=== PATIENT | male | born 1965 | race Caucasian/White ===

== ENCOUNTER → 2023-10-08 15:20 | Outpatient (REF) | payer OTHER, SELFPAY ==
[2023-10-08 14:52] LABS: % Basophils 0.9 % (0-2); % Eosinophils 5.7 % (0-6); % Immature Granulocytes 0.1 % (0-0.5); % Lymphocytes 25.5 % (20.5-51.1); % Neutrophils 60.8 % (42.2-75.2); Absolute Basophils 0.1 10^3/uL (0-0.2); Absolute Eosinophils 0.5 10^3/uL (0-0.7); Absolute Monocytes 0.6 10^3/uL (0.1-0.6); Absolute Neutrophils 4.8 10^3/uL (1.4-6.5); Mean Corp Hgb Conc. 34.2 g/dL (33.0-37.0); Mean Corpuscular Volume 87.8 fL (80.0-94.0); Mean Platelet Volume 10.4 fL (7.4-10.4); Platelet Count 238 10^3/uL (130-400); Red Blood Cell Count 4.33 10^6/uL (4.70-6.10); Red Cell Dist. Width 12.8 % (11.5-14.5); White Blood Cell Count 7.8 10^3/uL (4.8-10.8)
== END ==
LOC: OIDL 15:20
PROVIDERS: ATTENDING PHYSICIAN Internal Medicine Hematology & Oncology
DX: E83.110 Hereditary hemochromatosis (principal)
CPT/HCPCS: 85025

== ENCOUNTER → 2024-10-25 14:55 | Outpatient (REF) | payer OTHER, SELFPAY | LOC: HWRCS 14:55 | PROVIDERS: ATTENDING PHYSICIAN Internal Medicine Cardiovascular Disease; FAMILY PHYSICIAN Internal Medicine | DX: I49.3 Ventricular premature depolarization (principal); I77.810 Thoracic aortic ectasia | CPT/HCPCS: 93306 ==

== ENCOUNTER → 2024-12-15 07:45 | Outpatient (REF) | payer OTHER, SELFPAY | LOC: HWRAD 07:45 | PROVIDERS: ATTENDING PHYSICIAN Specialist; FAMILY PHYSICIAN Internal Medicine | DX: E83.110 Hereditary hemochromatosis (principal) | CPT/HCPCS: 76700 ==

== ENCOUNTER 2025-01-26 14:57 | Inpatient (IN) | payer OTHER, SELFPAY ==
[2025-01-26] VITALS (12 sets, daily range): BP systolic 106–143; BP diastolic 61–99; BMI 28.3; BMI 27.4
[2025-01-26 12:40] LABS: % Basophils 0.8 % (0-2); % Eosinophils 1.7 % (0-6); % Immature Granulocytes 0.3 % (0-0.5); % Lymphocytes 24.4 % (20.5-51.1); % Monocytes 5.9 % (1.7-9.3); % Neutrophils 66.9 % (42.2-75.2); Absolute Basophils 0.1 10^3/uL (0-0.2); Absolute Eosinophils 0.2 10^3/uL (0-0.7); Absolute Lymphocytes 2.4 10^3/uL (1.2-3.4); Absolute Monocytes 0.6 10^3/uL (0.1-0.6); Absolute Neutrophils 6.5 10^3/uL (1.4-6.5); Hematocrit 41.4 % (39.0-52.0); Hemoglobin 14.3 g/dL (13.0-18.0); Mean Corp Hgb Conc. 34.5 g/dL (33.0-37.0); Mean Corpuscular Hgb 29.9 pg (27.0-31.0); Mean Corpuscular Volume 86.6 fL (80.0-94.0); Mean Platelet Volume 11.9 fL (7.4-10.4); Nucleated Red Blood Cells % 0 % (-); Platelet Count 228 10^3/uL (130-400); Red Blood Cell Count 4.78 10^6/uL (4.70-6.10); Red Cell Dist. Width 13.2 % (11.5-14.5); White Blood Cell Count 9.7 10^3/uL (4.8-10.8)
[2025-01-26 12:58] LABS: ALT (SGPT) 27 U/L (0-50); AST (SGOT) 30 U/L (17-59); Albumin 4.7 g/dl (3.5-5.0); Alkaline Phosphatase 75 U/L (38-126); Blood Urea Nitrogen 18 mg/dl (9-20); Calcium 9.9 mg/dl (8.4-10.2); Carbon Dioxide 27 mmol/L (22-30); Chloride 107 mmol/L (98-107); Estimated Creatinine Clearance 103 ml/min; Glucose 111 mg/dl (70-99); Potassium 4.3 mmol/L (3.5-5.1); Sodium 143 mmol/L (135-145); Total Bilirubin 0.8 mg/dl (0.2-1.3); eGFR > 60.00
[2025-01-26 12:59] LABS: Troponin I < 0.012 ng/ml
[2025-01-26] MEDS: CARDIZEM 20 MG IV (13:18)
[2025-01-26] MEDS: CARDIZEM 125 IV (13:19)
--- NOTE | 2025-01-26 14:00 | HPS.HSE ---
Family Physician
-
Family Physician: Brennan Truong
Chief Complaint
-
palpitations
History of Present Illness
Mr. Calos Marcus is a 59 yo man with hx mitral valve repair (2004), KADI, HLD, hemochromatosis, GERD presents to the ER with palpitations. Patient has hx PVC's but felt fluttering yesterday that was more persistent. This morning he felt that his
heart beat was beating very fast and so he came to the ER. He denies chest pain. No LE swelling. Post initiation of Dilt gtt with improved rate, patient's symptoms resolved.
No fevers/chills. No headache. No abdominal pain. No vomiting/diarrhea. He has no history significant bleeding/ no rectal bleeding.
Medical History
Past Medical History
Past Medical History: Reports Other (mitral valve repair (2004), KADI, HLD, hemochromatosis, GERD)
Past Surgical History: Reports Other
Social History
Tobacco: Non-smoker
Alcohol: None
Family History
Family History: Not pertinent
Allergies / Home Medications
Allergies reflects when Allergies were last updated in [facility].
Home Medications with original date entered in [facility]
Allergy/Medication List:
Allergies
Allergy/AdvReac Type Severity Reaction Status Date / Time
NKA - No Known Allergies Allergy Unknown Uncoded 01/26/25 12:11
Home Medications
fluticasone propionate 50 mcg/actuation nasal spray,suspension 2 spray intranasal BIDPRN PRN allergies 08/19/19
cetirizine 10 mg tablet (Zyrtec) 10 mg PO HS 08/12/22
aspirin 81 mg tablet,delayed release 81 mg PO DAILY 01/26/25
rosuvastatin 10 mg tablet (Crestor) 10 mg PO DAILY 01/26/25
Review of Systems
-
History Source: Patient
A 12 point ROS was completed and negative except as noted: Yes
Physical Exam
Vital Signs
Vital Signs
Temp Pulse Resp BP Pulse Ox
97.9 F 79 22 122/83 98
01/26/25 12:12 01/26/25 13:30 01/26/25 13:30 01/26/25 13:00 01/26/25 13:30
Physical Exam
General: No Apparent Distress
HEENT: PERRLA
Respiratory: Clear; No Wheezes
Cardiac: S1/S2 and Irregular Rhythm
GI: Soft and Non Tender
Musculoskeletal: No Edema
Skin: Warm and Dry; No Rash
Neuro: Awake, Alert, Oriented and AO x 3
Psych: Calm
Laboratory Results
-
01/26/25 12:26
01/26/25 12:26
Laboratory Results
Total Bilirubin 0.8 mg/dl (0.2-1.3) 01/26/25 12:26
AST 30 U/L (17-59) 01/26/25 12:26
ALT 27 U/L (0-50) 01/26/25 12:26
Alkaline Phosphatase 75 U/L (38-126) 01/26/25 12:26
Troponin I < 0.012 ng/ml 01/26/25 12:26
Data Reviewed
-
Diagnostic Radiology: Report Reviewed by me
Lab Data: Labs Reviewed by me
Impression/Plan
-
Mr. Calos Marcus is a 59 yo man with hx mitral valve repair (2004), KADI, HLD, hemochromatosis, GERD presents to the ER with palpitations.
Triage VS: T 98.1, P 32, RR 22, BP 142/74, SpO2 98%
LABS: WBC 9.7, Hg 14.3, PLT 228, Na 143, K+ 4.3, CO2 27, BUN 18, Cr 0.8, Glucose 111, liver enzymes WNL, Trop neg x 1
EKG: aflutter @ 119, ST depression anterolateral leads; TWI inferior and anterior leads; repeat with decrease in rate 74; no further ST depression lateral leads
MAR: IV Diltiazem gtt
Aflutter with RVR
-admit to IVU
-Cardiology consulted
-CHADS2-Vasc score = 0-2 (patient reports possible TIA post mitral valve repair surgery). Discussing with Dr. Holder, will hold off on AC until evaluated by Cardiology
-continue IV Dilt gtt
-add on TSH
-TTE 10/25/24 - EF 65-70%; well seated mitral annuloplasty ring
-NPO after MN
Hx Mitral Valve Repair
KADI
-BiPAP qhs
Hyperlipidemia
-recent report high calcium score, started on aspirin and crestor
-patient was scheduled for a nuclear stress test tomorrow AM; will clarify timing with Cardiology, NPO after mN as above
Hemochromatosis
-patient has phlebotomy monthly
DVT PPx Lovenox subQ
FULL CODE
--- NOTE | 2025-01-26 14:44 | CON.CAR ---
Addendum entered and electronically signed by Errol Holder MD 01/26/25 17:06:
Patient seen and examined in collaboration with PARARESCUE MANAGER; agree with below.
- 59-year-old male with mitral valve repair (2004), hemochromatosis, hyperlipidemia, previous TIA, and significantly elevated coronary calcium score (5710) resenting with palpitations; found to have new onset paroxysmal atrial fibrillation.
- The patient's EKG showed ischemic changes in the anterolateral leads (ST depression/T-wave abnormality).
- The patient converted back to sinus rhythm on a Cardizem drip.
- The patient was scheduled to undergo a stress test tomorrow; however, given EKG abnormalities and significantly elevated coronary calcium score, cardiac catheterization will be arranged for tomorrow instead.
- If the patient indeed has CAD, then his C2 V score would be 2; therefore, systemic anticoagulation would be indicated indefinitely.
- residential monitor.
- Will discontinue Cardizem drip and place the patient on metoprolol tartrate 12.5 mg twice daily.
- The patient had an recent echocardiogram 2 months ago with normal LVEF and stable cardiac function; no need to repeat at this time.
- NPO after midnight.
Addendum entered and electronically signed by DANIEL Palencia 01/26/25 16:55:
HPI not complete as below- He is here for evaluation after noting sustained palpitations around lunch time. He checked his Kardia monitor, which showed HR in 130's, so he came to the ER. He was seen to be in AFIB with RVR, then atrial flutter, now
back in SR.
Original Note:
Consultation
Consultation Request
Date/Time Consultation Requested: 01/26/25 9917
Date/Time Consultation Performed: 01/26/25 1445
Requesting Provider: Dr. White
Performing Provider: Briana SANCHEZ for Dr. Holder
Reason for Consultation: AFIB
Medical History
-
Chief Complaint: palpitations
History of Present Illness:
59 y/o male (patient of Dr. Ott) with hx MV repair at 2004, HLD, hemochromatosis, PVC's, dilated aortic root 4.3 cm, GERD, and sleep apnea. He recently had a coronary calcium score of 5710.
Past Medical History
Past Medical History: GERD, Hypercholesterolemia, Valvular Disease and Other (as above)
Social History
Personal:
Living: With Family
Family History
Family History: Reviewed & Not Pertinent
Allergies / Home Medications
Allergy/AdvReac Type Severity Reaction Status Date / Time
NKA - No Known Allergies Allergy Unknown Uncoded 01/26/25 12:11
�Medication �Instructions �Recorded �Confirmed �Type
fluticasone propionate 50 2 spray intranasal BIDPRN PRN 08/19/19 01/26/25 History
mcg/actuation nasal allergies
spray,suspension
cetirizine 10 mg tablet (Zyrtec) 10 mg PO HS 08/12/22 01/26/25 History
aspirin 81 mg tablet,delayed 81 mg PO DAILY 01/26/25 01/26/25 History
release
rosuvastatin 10 mg tablet (Crestor) 10 mg PO DAILY 01/26/25 01/26/25 History
Review of Systems
-
History Source: Patient
All other systems: Negative unless noted
Cardiac: Palpitations
Physical Exam
Vital Signs
Temp Pulse Resp BP Pulse Ox
97.9 F 79 22 122/83 98
01/26/25 12:12 01/26/25 13:30 01/26/25 13:30 01/26/25 13:00 01/26/25 13:30
Lab Results
01/26/25 12:26
01/26/25 12:26
Troponin I < 0.012 ng/ml 01/26/25 12:26
Physical Exam
General: Well Developed, Well Nourished and No Apparent Distress
HEENT: Normocephalic and Anicteric
Respiratory: Clear and Non Labored Respirations
Cardiac: Regular Rhythm
Musculoskeletal: No Edema
Skin: Warm and Dry
Neuro: AO x 3
Psych: Calm
Impression / Plan
-
AFIB, paroxysmal, atrial flutter (type unknown):
-now stable in SR. Patient with hx bradycardia/PVC's. Stop diltiazem drip. Start low dose metoprolol and follow telemetry.
-[id number] score is likely 3 for hx TIA and CAD suspected (severely elevated calcium score)- we are starting heparin drip, which requires intensive monitoring- likely transition to Eliquis
-TSH pending
-recent echo as noted
Elevated coronary calcium score:
-no CP
-5710 per OP chart
-on ASA and statin- plan was for stress test in AM. However, his EKG showed significant ST/T abnormalities when HR elevated. We will proceed to cath tomorrow. Give ASA now and continue daily. Check lipids, hgbA1C. Trend trops.
Hx mitral valve repair:
-stable by recent echo
Hemochromatosis
KADI on CPAP
Dilated aortic root
PVC's
1st degree AVB
Data Reviewed
-
EKG: Tracing Personally Visualized and interpreted (A flutter 119 BPM, ST and T wave abnormalities anterolateral)
Medical Tests (Nuc Med, Echo etc): Report Reviewed by me (Echo 10/25/24: Normal biventricular size and systolic function without regional wall motion abnormality. LVEF 65-70%. Biatrial enlargement. Well seated mitral annuloplasty ring with a mean
gradient of 3 mmHg. Dilated aortic root (SOV 4.3 cm).)
Labs: Labs Reviewed by me
[2025-01-26 16:20] LABS: TSH Reflex To Free T4 2.08 uIU/ml (0.47-4.68)
[2025-01-26] MEDS: ASPIRIN 325 MG PO (16:39)
[2025-01-26] MEDS: HEPARIN 4000 UNITS IV (16:40)
[2025-01-26] MEDS: HEPARIN 25000 UNITS/250 ML IV (16:42)
[2025-01-26] MEDS: ZYRTEC 10 MG PO (21:44)
[2025-01-26] MEDS: LOPRESSOR 12.5 MG PO (21:44)
[2025-01-26 22:00] LABS: Troponin I < 0.012 ng/ml
[2025-01-27] VITALS (14 sets, daily range): BP systolic 91–137; BP diastolic 62–95
[2025-01-27 00:30] LABS: APTT 44.3 Sec (23.4-35.0)
--- NOTE | 2025-01-27 00:50 | PTCARENOTE ---
Pt admitted t room 2246 form ED. Pt AAOx4, denies pain or discomfort at this time. Pt NSR with PVCs , bigeminy and 1st HB on monitor. Pt on Heparin gtt per protocol. NPO for Cath in am. Pt oriented to room, call pizarro in reach. Independent in the room
[2025-01-27 04:21] LABS: Hematocrit 36.7 % (39.0-52.0); Hemoglobin 12.7 g/dL (13.0-18.0); Mean Corp Hgb Conc. 34.6 g/dL (33.0-37.0); Mean Corpuscular Hgb 29.9 pg (27.0-31.0); Mean Corpuscular Volume 86.4 fL (80.0-94.0); Mean Platelet Volume 12.1 fL (7.4-10.4); Platelet Count 184 10^3/uL (130-400); Red Blood Cell Count 4.25 10^6/uL (4.70-6.10); Red Cell Dist. Width 13.4 % (11.5-14.5); White Blood Cell Count 7.1 10^3/uL (4.8-10.8)
[2025-01-27 04:38] LABS: Blood Urea Nitrogen 19 mg/dl (9-20); Calcium 9.1 mg/dl (8.4-10.2); Carbon Dioxide 23 mmol/L (22-30); Chloride 112 mmol/L (98-107); Estimated Creatinine Clearance 117 ml/min; Glucose 101 mg/dl (70-99); HDL Cholesterol 34 mg/dl; LDL Cholesterol, Calculated 72 mg/dl; Magnesium 1.9 mg/dl (1.6-2.3); Potassium 4.1 mmol/L (3.5-5.1); Sodium 141 mmol/L (135-145); Total Cholesterol 125 mg/dl (50-199); Triglyceride 97 mg/dl (10-149); Very Low Density Lipoprotein 19 mg/dl (0-30); eGFR > 60.00
[2025-01-27 04:49] LABS: Troponin I < 0.012 ng/ml
[2025-01-27 07:08] LABS: APTT 61.2 Sec (23.4-35.0)
[2025-01-27] MEDS: ASPIR LOW (ENTERIC COATED) 81 MG PO (08:12)
[2025-01-27] MEDS: CRESTOR 10 MG PO (08:12)
[2025-01-27] MEDS: LOPRESSOR PO ×2 (09:36→21:51)
[2025-01-27 09:46] LABS: Glycohemoglobin (HgbA1c) 5.6 % (4.0-5.6)
--- NOTE | 2025-01-27 10:03 | PTCARENOTE ---
Lopressor 12.5 mg PO held this morning HR 48-50, SB with 1st HB. Heparin infusing at 1400 units/hr, NPO for cath today
--- NOTE | 2025-01-27 10:47 | CM ---
Reviewed chart. Met with Mr and Mrs. Marcus to review discharge plans. He states prior to admission he resides with his spouse in a bi-level home. He states he has seven steps to get to the main living area. He states prior to admission he was
independent with ambulation and adls. He states he a CPAP Machine at home and no other DME in the home. He states he a prescription plan and uses [facility]. Medical work-up in progress. The discharge plan is to return home with his spouse when
medically stable.
--- NOTE | 2025-01-27 14:49 | W.PN.HOSP.TC ---
Today's Communication/Plan
-
BB
LHC today
Assessment / Plan
Assessment / Plan
Physical Exam
General: No Apparent Distress
HEENT: PERRLA
Respiratory: Clear; No Wheezes
Cardiac: S1/S2 and Irregular Rhythm
GI: Soft and Non Tender
Musculoskeletal: No Edema
Skin: Warm and Dry; No Rash
Neuro: Awake, Alert, Oriented and AO x 3
Psych: Calm
Mr. Calos Marcus is a 59 yo man with hx mitral valve repair (2004), KADI, HLD, hemochromatosis, GERD presents to the ER with palpitations.
Aflutter with RVR
-admit to IVU
-Cardiology consulted
-CHADS2-Vasc score = 0-2 (patient reports possible TIA post mitral valve repair surgery). Discussing with Dr. Holder, will hold off on AC until evaluated by Cardiology
-IV Dilt gtt - switch to PO BB
-TSH 2.08
-TTE 10/25/24 - EF 65-70%; well seated mitral annuloplasty ring
-[facility] today
Hx Mitral Valve Repair
KADI
-BiPAP qhs
Hyperlipidemia
-recent report high calcium score, started on aspirin and crestor
Hemochromatosis
-patient has phlebotomy monthly
DVT PPx Lovenox subQ
FULL CODE
Anticipated Discharge: Within 24 hours
Subjective/Interval History
-
Date of Service: January 27, 2025
no acute events overnight
HR controlled on BB
Objective Data
-
Labs:
Laboratory Results
01/27/25 01/27/25 01/27/25
03:36 03:37 06:49
WBC 7.1
Hgb 12.7 L
Hct 36.7 L
Plt Count 184
APTT 61.2 H
Sodium 141
Potassium 4.1
Chloride 112 H
Carbon Dioxide 23
BUN 19
Creatinine 0.7
Glucose 101 H
Calcium 9.1
01/27/25
14:31
WBC
Hgb
Hct
Plt Count
APTT Pending
Sodium
Potassium
Chloride
Carbon Dioxide
BUN
Creatinine
Glucose
Calcium
Vital Signs:
Vital Signs
Temp Pulse Resp BP Pulse Ox
98 F 51 20 105/76 99
01/27/25 11:02 01/27/25 08:00 01/27/25 11:02 01/27/25 07:11 01/27/25 11:02
I&O
01/26/25 01/27/25 01/28/25
06:59 06:59 06:59
Intake Total 480 / 480
Balance 480 / 480
Review of Systems
-
History Source: Patient
All other systems: Not reviewed unless documented
[2025-01-27 14:56] LABS: APTT 79.4 Sec (23.4-35.0)
--- NOTE | 2025-01-27 15:00 | PTCARENOTE ---
Patient anxious and tearful about the procedure. Report given. He voided and underwear removed. NPO since midnight, VSS
--- NOTE | 2025-01-27 15:30 | ED.GENMED ---
History of Present Illness
General
Chief Complaint: Cardiac Symptoms
Time Seen by Provider: 01/26/25 12:43
History of Present Illness
History of Present Illness:
59-year-old male history of hyperlipidemia, GERD presenting with intermittent palpitations for the past 2 days. Patient denies chest pain, shortness of breath, dizziness, nausea, vomiting or diarrhea. Patient states that he was seen by his PCP who
did have the patient had elevated calcium score and was scheduled see cardiology tomorrow. Patient states that he had palpitations again earlier this morning prompting ED evaluation. Patient states that palpitations since improved.
Past History
Past History
ED Past Medical History: Other (Clot in left arm that resolved on its own), Other (TIA) and Other (Herniated discs)
ED Past Surgical History: Other (MVP repair)
Social History
Tobacco: Non-smoker
Drug: None
Personal:
Living: with family
Employment: Employed
Phy Exam
Physical Exam
Physical Exam:
General: Alert, no acute distress
Head: NCAT
Eyes: clear conjunctiva
Neck: supple
Cardiac: Tachycardic, rhythm irregularly irregular
Lungs: clear to auscultation bilaterally. No wheezes, rales, or rhonchi. Speaking full unlabored sentences. No respiratory distress.
Abdomen: soft, nondistended nontender. No rebound or guarding.
MSK: no lower extremity edema bilaterally. No deformity
Skin: warm, dry
Neuro: Alert and oriented x3. no focal deficits
Course
Orders/Labs/Results
Orders:
Orders
01/26/25 Lunch
Cholesterol Lowering
At Your Request: Full Participation
Does patient need a safe tray?: No
Cholesterol Lowering: Sodium, 2 Gram
01/26/25 12:10
Electrocardiogram (*1) Urgent
Reason for Study: Bradycardia / Tachycardia
EKG- Treatment ONCE
01/26/25 12:26
Complete Blood Count/With Diff Urgent
Comprehensive Metabolic Panel Urgent
TSH Reflex To Free T4 Urgent
Comment: ADD ON
Troponin I Urgent
01/26/25 13:01
Diltiazem HCl [Cardizem] 20 mg IV NOW STA
01/26/25 13:15
Diltiazem 125 mg/125 ml Nss [Cardizem] 125 mg in 125 ml IV PER PROTOCOL
Currently infusing. Continue current dose and titrate:: Yes
Titrate to keep:: Heart rate 80-100 bpm
Titrate by mg/hr:: 5 mg/hr
Frequency of titrations (minutes):: 15
Maximum dose in mg/hr:: 15
01/26/25 13:26
Electrocardiogram (*1) Stat
Comment: ALREADY DONE
01/26/25 14:26
Add On- LAB Routine
Tests Added?: TSH with reflex to T4
01/26/25 14:28
Admit/Transfer Patient As Directed
Co-Sign Provider:
Level of Care: Inpatient admission
Assign to:: IVU
Physician / Group: Raven White
Diagnosis: Aflutter with RVR
Reason for Hospitalization: Aflutter with RVR
Expected length of stay greater than two midnights?: Yes
ELOS- Estimated Length of Stay in days: 3
I certify the patient meets the requirements for IP care: Yes
PRN Pain Medication Management As Directed
May give lesser potent ordered pain med per pt: Yes
preference::
Protocol:: Medication orders for pain may be administered in a
manner that supports deferring to patient preference
when the pt is:
- Requesting an ordered lesser potent pain medication.
Least to most potent pain medications are defined
as: acetaminophen < NSAID < tramadol < opioids
(morphine, oxycodone, hydromorphone).
- Requesting a lesser dose of the same medication IF
ORDERED.
- Requesting a less intrusive route of administration
if both routes are prescribed by the provider (PO <
IV).
01/26/25 14:29
Code Status As Directed
Resuscitation Status: Full Code
01/26/25 20:50
Acetaminophen [Tylenol] 650 mg PO Q4HPRN PRN
Bisacodyl [Dulcolax] 10 mg RECTAL [id number] PRN
Docusate W/Senna [Senokot-S] 1 tablet PO BIDPRN PRN
Polyethylene Glycol Powder [Miralax] 17 grams PO DAILYPRN PRN
fluticasone propionate 2 spray NASAL BIDPRN PRN
01/26/25 20:50
Consult Cardiology [CARDIOLOGY CONSULT] Routine
Consulting Provider: Errol Holder
Was physician already notified: Yes
Activity As Directed
Activity Level: As Tolerated
Vital Signs As Directed
Frequency: Per unit guidelines
DX Deep Vein Thrombosis Video Routine
01/26/25 21:19
Troponin I Q6H
01/26/25 22:00
Cetirizine HCl [Zyrtec] 10 mg PO HS
Bipap [RESP] HS
Patient to use own unit?: Yes
01/27/25 03:36
Basic Metabolic Panel IN AM
Cardiovascular Evaluation IN AM
Magnesium IN AM
01/27/25 03:37
Complete Blood Count/No Diff IN AM
Troponin I Q6H
01/27/25 Breakfast
NPO
Allow oral meds: Yes
Allow clear liquids: No
01/27/25 08:00
Aspirin Low Dose EC [Aspir Low (Enteric Coated)] 81 mg PO DAILY
Rosuvastatin Calcium [Crestor] 10 mg PO DAILY
Abnormal Lab Results
01/26/25
12:26
MPV 11.9 H fL
(7.4-10.4)
Glucose 111 H mg/dl
(70-99)
01/26/25 12:26
01/26/25 12:26
Vital Signs
Initial and Last Documented VS:
Initial Vital Signs
Temp Pulse Resp BP Pulse Ox
97.9 F 84 20 143/99 95
01/26/25 12:12 01/26/25 12:12 01/26/25 12:12 01/26/25 12:12 01/26/25 12:12
Last Documented Vital Signs
Temp Pulse Resp BP Pulse Ox
98.0 F 54 16 137/80 99
01/27/25 14:58 01/27/25 14:56 01/27/25 14:58 01/27/25 14:56 01/27/25 14:58
MDM/Problems Addressed
Differential Diagnosis Includes:
symptomatic Atrial fibrillation, electrolyte abnormality, KEN, NSTEMI
MDM/Problems Addressed:
59-year-old male history of hyperlipidemia presenting with palpitations intermittently for the past 2 days. Patient states that palpitations returned this morning prompting ED arrival. Patient denies chest pain, shortness of breath or dizziness.
Patient denies history of atrial fibrillation. Patient states that he was seen by his PCP did outpatient calcium score that was noted to be elevated, scheduled to see cardiology tomorrow. On arrival patient was found to be in new onset atrial
flutter with rapid ventricular response. Initial EKG shows atrial flutter at 119 bpm with QRS 94 [address] depressions, new compared to previous EKG on 08/02/2023. Given symptoms have been ongoing for the past 2 days, outpatient
elevated calcium score with EKG changes, will rate control with Cardizem and admit for cardiology consultation. Discussed with patient who is agreeable. Repeat EKG after Cardizem bolus showed atrial flutter at 74 bpm with QRS 98 QTc 448 T wave
inversions laterally. Labs reviewed, electrolytes, troponin, creatinine, hemoglobin within normal limits. Discussed with hospitalist for admission
*Critical Care Note
Total Time (30-74mins, 75-104mins- exclusive of procedures): Not Applicable
ED Attending Note
-
Portions of this chart may have been created with voice recognition software.� Occasional wrong word or��sound alike� substitutions may have occurred due to the inherent limitations of voice recognition software.
Discharge Plan
Departure
Patient Disposition: Admit
Date of Disposition: 01/26/25
Time of Disposition: 13:38
Presentation/result/management discussed w/ accepting MD/DO: Hospitalist
Discharge Problem:
Atrial fibrillation, new onset
Interventions
Interventions:
*Risk Screen - Suicide Last Done: 01/26/25 12:12
*General Assessment Last Done: 01/26/25 12:12
*Neglect/Abuse Screening Last Done: 01/26/25 13:33
*ED COVID-19 Vaccine History Last Done: 01/26/25 21:04
*Nursing Disposition Last Done: 01/26/25 21:15
ED- Pulmonary Assessment Last Done: 01/26/25 12:55
ED- Cardiac Assessment Last Done: 01/26/25 12:55
Discharge Date and Time
Discharge Date/Time: 01/26/25 21:15
--- NOTE | 2025-01-27 16:41 | PTCARENOTE ---
patient sent to the catheterization laboratory technician, heparin stopped
--- NOTE | 2025-01-27 17:45 | PTCARENOTE ---
Patient received from the slab puller, awake and alert. Bigeminy HR 60's, BP 115/78. Right radial band on and intact with 10 cc of air. at bedside, call pizarro in reach
--- NOTE | 2025-01-27 17:57 | W.PN.CD ---
Today's Communication / Plan
-
cath without severe disease, med management only
increase statin to high intensity
heparin for now, start eliquis in AM
Impression / Plan
-
AFIB, paroxysmal, atrial flutter (type unknown):
-now stable in SR. Patient with hx bradycardia/PVC's.
-cont. metop 12.5 BID
-[id number] score is likely 3 for hx TIA and CAD suspected (severely elevated calcium score)- transition to eliquis 5 BID
-TSH pending
-recent echo as noted
Elevated coronary calcium score and EKG changes in Afib
-no CP
-5710 cac score per OP chart
-LHC today with moderate 3v CAD, no indication for revascularization in a patient without anginal pain
-needs aggressive secondary prevention: will increase statin to high intensity, cont. asa
Hx mitral valve repair:
-stable by recent echo
Hemochromatosis
KADI on CPAP
Dilated aortic root
PVC's
1st degree AVB
Physical Exam
Vital Signs/Labs
Vital Signs
Temp Pulse Resp BP Pulse Ox
36.6 C 79 16 115/78 97
01/27/25 17:50 01/27/25 17:45 01/27/25 17:50 01/27/25 17:45 01/27/25 17:50
01/26/25 01/27/25 01/28/25
06:59 06:59 06:59
Actual Weight 86.7 kg
01/27/25 03:37
01/27/25 03:36
APTT 79.4 Sec (23.4-35.0) H 01/27/25 14:31
Magnesium 1.9 mg/dl (1.6-2.3) 01/27/25 03:36
Triglycerides 97 mg/dl (10-149) 01/27/25 03:36
LDL Cholesterol, Calc 72 mg/dl 01/27/25 03:36
VLDL Cholesterol, Calc 19 mg/dl (0-30) 01/27/25 03:36
HDL Cholesterol 34 mg/dl 01/27/25 03:36
LAB Results
01/26/25 01/26/25 01/27/25
12:26 21:19 03:37
Troponin I < 0.012 < 0.012 < 0.012
Physical Exam
Constitutional: No acute distress
Cardiovascular: Rhythm & rate is regular
Respiratory: Respiratory effort normal
Neuro/Psych: AO x 3
Data Reviewed
-
Date of Service: January 27, 2025
Medical Decision Making: Reviewed Test Results
EKG: Tracing Personally Visualized and interpreted
Echo: Tracing Personally Visualized and interpreted
Labs: Labs Reviewed by me
[2025-01-27] MEDS: ZYRTEC 10 MG PO (21:51)
--- NOTE | 2025-01-27 22:28 | ITS.CL.PN ---
Investigative Assistant - Procedure Note
Procedure
Procedure Note:
CARDIAC CATHETERIZATION REPORT
Date of Procedure: 01/27/2025
Referring: Dr. Errol Holder MD
Indication: Elevated coronary artery calcium score, ischemic ECG changes concerning for obstructive coronary artery disease
PROCEDURE(S)
1. left heart catheterization
2. coronary angiography
ACCESS: 6F right radial artery (closure: radial band)
CATHETERS
1. 6F JR4
2. 6F JL3.5
MODERATE SEDATION: 25 minutes of moderate sedation was utilized. An independent medical i d sales was present to assist with and help manage the patient's level of consciousness and physiologic status.
HEMODYNAMIC DATA
LV 110/80 (EDP 18) mmHg
AO 114/64 (mean 82) mmHg
CORONARY ANGIOGRAPHY
Dominance: Right
LM: Large vessel with mild distal tapering.
LAD: Large vessel giving rise to a moderate caliber D1 and small D2. There is diffuse mild to moderate disease.
LCx: Large vessel giving rise to a moderate caliber OM1, moderate caliber OM2, small OM3, small LPL1, and moderate caliber LPL2 branch. There is diffuse disease with a focal 60% stenosis in the ostial LCx (seen best in [place] cranial), a focal 50%
stenosis between OM1 and OM2, and a focal 50% stenosis in the distal vessel before the LPL2.
RCA: Large vessel giving rise to a moderate caliber RPDA and 2 small RPL branches. There is an ulcerated lesion in the proximal RCA with up to 50% stenosis.
RADIATION: dose 406 mGy; DAP 25.1 Gy*cm2; fluoroscopy time 2.8 min
CONCLUSIONS
1. Diffuse moderate coronary artery disease with significant extraluminal calcification in a right dominant system. There is no focally severe disease.
2. Mildly elevated LV filling pressure and no aortic stenosis
RECOMMENDATIONS
1. Aggressive secondary prevention of coronary artery disease with goal LDL less than 55
2. Treatment of ischemic heart disease with beta-юлия
Copy to: Dr. Elmer Ott MD (electrolog operator); Dr. Brennan Truong MD (PCP)
Signed: Magdi Morgan MD, PhD
[2025-01-28 03:29] VITALS: BP 103/68
[2025-01-28 04:33] LABS: Hematocrit 37.7 % (39.0-52.0); Hemoglobin 13.1 g/dL (13.0-18.0); Mean Corp Hgb Conc. 34.7 g/dL (33.0-37.0); Mean Corpuscular Hgb 29.9 pg (27.0-31.0); Mean Corpuscular Volume 86.1 fL (80.0-94.0); Mean Platelet Volume 12.2 fL (7.4-10.4); Platelet Count 192 10^3/uL (130-400); Red Blood Cell Count 4.38 10^6/uL (4.70-6.10); Red Cell Dist. Width 13.3 % (11.5-14.5); White Blood Cell Count 7.4 10^3/uL (4.8-10.8)
--- NOTE | 2025-01-28 06:32 | PTCARENOTE ---
Pt SB on monitor. Rt wrist post cath dsg clean and intact. Pt denies any pain or discomfort. independent in the room
[2025-01-28 07:57] VITALS: BP 100/64
[2025-01-28] MEDS: ASPIR LOW (ENTERIC COATED) 81 MG PO (08:09)
[2025-01-28] MEDS: CRESTOR 20 MG PO (08:09)
[2025-01-28] MEDS: ELIQUIS 5 MG PO (08:09)
[2025-01-28] MEDS: LOPRESSOR PO (09:04)
[2025-01-28 09:05] LABS: Blood Urea Nitrogen 16 mg/dl (9-20); Calcium 8.9 mg/dl (8.4-10.2); Carbon Dioxide 25 mmol/L (22-30); Chloride 110 mmol/L (98-107); Estimated Creatinine Clearance > 125 ml/min; Glucose 100 mg/dl (70-99); Potassium 4.3 mmol/L (3.5-5.1); Sodium 140 mmol/L (135-145); eGFR > 60.00
--- NOTE | 2025-01-28 10:48 | W.PN.HOSP.TC ---
Addendum entered and electronically signed by Elkin Rogel MD 01/28/25 12:30:
[id number]
Addendum entered and electronically signed by Elkin Rogel MD 01/28/25 12:23:
Holding AV neo blockade
F/u Dr. Hernandez outpt
See plan below
Original Note:
Today's Communication/Plan
-
Aspirin, Crestor 20 mg nightly
Eliquis
AV neo blockade as per cardiology. At this time due to bradycardia, may opt to hold off on any beta-юлия or calcium channel юлия
Follow-up PCP within 1 week
Follow-up with cardiology as scheduled
Assessment / Plan
Assessment / Plan
Physical Exam
General: No Apparent Distress
HEENT: PERRLA
Respiratory: Clear; No Wheezes
Cardiac: S1/S2 and Irregular Rhythm
GI: Soft and Non Tender
Musculoskeletal: No Edema
Skin: Warm and Dry; No Rash
Neuro: Awake, Alert, Oriented and AO x 3
Psych: Calm
Mr. Calos Marcus is a 59 yo man with hx mitral valve repair (2004), KADI, HLD, hemochromatosis, GERD presents to the ER with palpitations.
Aflutter with RVR
-admit to IVU
-Cardiology consulted
-CHADS2-Vasc score = 0-2 (patient reports possible TIA post mitral valve repair surgery).
�Bradycardic, defer AV neo blockade to cardiology
� Heparin transition to Eliquis
-TSH 2.08
-TTE 10/25/24 - EF 65-70%; well seated mitral annuloplasty ring
CAD
� Elevated coronary calcium score
� No chest pain
� Left heart cath today with moderate CAD although no indication for revascularization with patient without anginal pain
� Increase statin to Crestor 20 mg and continue aspirin
Hx Mitral Valve Repair
�Stable
KADI
-BiPAP qhs
Hyperlipidemia
-recent report high calcium score, continue aspirin and increased crestor
Hemochromatosis
-patient has phlebotomy monthly
DVT PPx Lovenox subQ
FULL CODE
More than 30 minutes spent in discharge including
Final examination of the patient
Summarizing hospital stay
Instructions for continuing care to all relevant caregivers
Preparation of discharge records, prescriptions, and referral forms
Total time spent (in minutes): 37
Anticipated Discharge: Today
Subjective/Interval History
-
Date of Service: January 28, 2025
Without severe coronary disease, with elevated coronary calcium score.
Objective Data
-
Labs:
Laboratory Results
01/28/25 01/28/25
03:35 08:19
WBC 7.4
Hgb 13.1
Hct 37.7 L
Plt Count 192
Sodium 140
Potassium 4.3
Chloride 110 H
Carbon Dioxide 25
BUN 16
Creatinine 0.6 L
Glucose 100 H
Calcium 8.9
Vital Signs:
Vital Signs
Temp Pulse Resp BP Pulse Ox
98.1 F 55 18 100/64 97
01/28/25 08:00 01/28/25 09:45 01/28/25 08:00 01/28/25 07:57 01/28/25 08:00
I&O
01/27/25 01/28/25 01/29/25
06:59 06:59 06:59
Intake Total 480 / 480 1280 / 1280
Balance 480 / 480 1280 / 1280
Review of Systems
-
History Source: Patient
All other systems: Not reviewed unless documented
Data Reviewed
-
Medical Tests (Nuc Med, Echo etc): Report Reviewed by me
Labs: Labs Reviewed by me
--- NOTE | 2025-01-28 12:23 | W.DS.TRANS ---
DC Summary - [facility] [employer]
-
Discharge Instructions:
Discharge Diagnosis/Procedures Cardiac cath
Atrial Fib
CAD
Diet Low Cholesterol,Low Fat
Driving Restrictions No driving for 24 hours
Blood Work cbc and bmp in 1 week with pcp
Instructions:
Stand-Alone Forms: DC Instructions- Cath/EP Lab
Changes to Home Medications: Yes
Discharge Medications:
DC Medications w/original date entered in [facility]
fluticasone propionate 50 mcg/actuation nasal spray,suspension 2 spray intranasal BIDPRN PRN allergies 08/19/19
cetirizine 10 mg tablet (Zyrtec) 10 mg PO HS Allergies 08/12/22
aspirin 81 mg tablet,delayed release 81 mg PO DAILY Heart Disease/Condition 01/26/25
apixaban 5 mg tablet (Eliquis) 5 mg PO BID #60 tabs 01/28/25
rosuvastatin 20 mg tablet 20 mg PO DAILY 30 days #30 tabs 01/28/25
Home Medication Changes
apixaban 5 mg tablet (Eliquis) 5 mg PO BID #60 tabs 01/28/25
rosuvastatin 20 mg tablet 20 mg PO DAILY 30 days #30 tabs 01/28/25
Pending Results: No
[2025-01-28 12:54] VITALS: BP 99/70
[2025-01-28 12:55] VITALS: BP 110/63
--- NOTE | 2025-01-28 13:11 | PTCARENOTE ---
Discharge teaching completed with the patient and spouse, they verbalized understanding. IV and telemetry removed. Eliquis coupon booklets given. Patient assisted to main lobby for discharge to his spouses car.
--- NOTE | 2025-01-28 13:27 | W.PN.CD ---
Today's Communication / Plan
-
- Patient unable to tolerate beta-юлия secondary to intrinsic bradycardia.
- Continue Eliquis 5 mg twice daily.
- Recommend outpatient EP Cardiology evaluation for possible tachycardia-bradycardia syndrome.
- Can be discharged home today; Outpatient follow-up with Cardiology.
Impression / Plan
-
New onset paroxysmal atrial fibrillation/typical flutter:
- Remains in sinus rhythm; intrinsic bradycardia at 40s-50s.
- Patient unable to tolerate beta-юлия secondary to intrinsic bradycardia.
- ELANW2LRHG score is 3 for previous TIA and CAD/severely elevated calcium score.
- TSH normal.
- Normal LVEF on echo.
- Continue Eliquis 5 mg twice daily.
- Recommend outpatient EP Cardiology evaluation for possible tachycardia-bradycardia syndrome.
Elevated coronary calcium score and EKG changes in Afib
- Moderate nonobstructive coronary artery disease (50% RCA, 60% LCX) on [facility] yesterday; medical management.
- 5710 cac score per OP chart
- Continue aspirin and rosuvastatin.
Hx mitral valve repair:
-stable on echo
Hemochromatosis
KADI on CPAP
Dilated aortic root
PVC's
1st degree AVB
Physical Exam
Vital Signs/Labs
Vital Signs
Temp Pulse Resp BP Pulse Ox
98.1 F 50 18 110/63 98
01/28/25 08:00 01/28/25 12:55 01/28/25 08:00 01/28/25 12:55 01/28/25 12:54
01/27/25 01/28/25 01/29/25
06:59 06:59 06:59
Actual Weight 86.7 kg
01/28/25 03:35
01/28/25 08:19
APTT 79.4 Sec (23.4-35.0) H 01/27/25 14:31
Magnesium 1.9 mg/dl (1.6-2.3) 01/27/25 03:36
Triglycerides 97 mg/dl (10-149) 01/27/25 03:36
LDL Cholesterol, Calc 72 mg/dl 01/27/25 03:36
VLDL Cholesterol, Calc 19 mg/dl (0-30) 01/27/25 03:36
HDL Cholesterol 34 mg/dl 01/27/25 03:36
LAB Results
01/26/25 01/26/25 01/27/25
12:26 21:19 03:37
Troponin I < 0.012 < 0.012 < 0.012
Physical Exam
Constitutional: No acute distress and Comfortable
EENT: Anicteric
Cardiovascular: Pedal edema is absent, Systolic murmur absent, S1S2 is normal and Other (Regular rhythm, bradycardic)
Respiratory: Respiratory effort normal and Lungs clear to auscul.
GI: Soft
Neuro/Psych: AO x 3
Other: Skin (Warm, dry, intact)
Data Reviewed
-
Date of Service: January 28, 2025
EKG: Tracing Personally Visualized and interpreted (Sinus rhythm, PVCs in a pattern of bigeminy yesterday evening after cardiac cath)
Echo: Report Reviewed by me (Normal LVEF)
Medical Tests (PFT, Pathology etc): Discussed with Physician, Discussed with Nurse and Discussed with Family (With at bedside)
Labs: Labs Reviewed by me
== END 2025-01-28 13:18 | disposition home or self-care (01) | DRG 287 ==
LOC: IVU 14:57
PROVIDERS: Emergency Medicine; Nurse Practitioner; Student in an Organized Health Care Education/Training Program; ADMITTING PHYSICIAN Student in an Organized Health Care Education/Training Program; ATTENDING PHYSICIAN Internal Medicine; CONSULT PHYSICIAN Internal Medicine; EMERGENCY PHYSICIAN Emergency Medicine; FAMILY PHYSICIAN Internal Medicine
PROC: B2111ZZ Fluoroscopy of Multiple Coronary Arteries using Low Osmolar Contrast (ICD-10-PCS; 2025-01-27)
PROC: 4A023N7 Measurement of Cardiac Sampling and Pressure, Left Heart, Percutaneous Approach (ICD-10-PCS; 2025-01-27)
DX: I48.0 Paroxysmal atrial fibrillation (principal); I48.92 Unspecified atrial flutter; I25.10 Atherosclerotic heart disease of native coronary artery without angina pectoris; K21.9 Gastro-esophageal reflux disease without esophagitis; E78.00 Pure hypercholesterolemia, unspecified; G47.33 Obstructive sleep apnea (adult) (pediatric); I49.3 Ventricular premature depolarization; E83.119 Hemochromatosis, unspecified; Z79.82 Long term (current) use of aspirin; Z86.73 Personal history of transient ischemic attack (TIA), and cerebral infarction without residual deficits
CPT/HCPCS: 80048; 80053; 80061; 83036; 83735; 84443; 84484; 85025; 85027; 85730; 93005; 93458; 96365; 96366; 96375; 99152; 99285; C1894; Q9967

== ENCOUNTER 2025-07-06 08:16 | Day surgery (SDC) | payer OTHER, SELFPAY ==
[2025-06-22 10:22] VITALS: BMI 28.9
[2025-07-06] VITALS (14 sets, daily range): BP systolic 103–123; BP diastolic 56–71; BMI 28.0
--- NOTE | 2025-07-06 11:26 | ITS.CL.PACE ---
[employer] Coordinator - Pacemaker Implant
Pacemaker Implant
Procedure Report:
Conduction system pacing Permanent Pacemaker Placement:
Mr. Marcus is a 60 yrs old gentleman with Tachy Arturo syndrome, with non obstructive CAD, KADI, HPL and h/o Mitral valve repair (2005) is here for a PPM.
Indications:
Tachy Arturo syndrome
Date of the Procedure:
07/06/25
Pre-Operative Diagnosis: Tachy Arturo syndrome
Post-Operative Diagnosis: Tachy Arturo syndrome
Procedure Performed: Conduction system pacing permanent pacemaker
Performing Physician:
Hayes Hernandez MD
Anesthesia:
See anesthesia report.
Detailed Description of the Procedure:
The patient was identified using hospital identification and informed consent obtained for the procedure. The risks were explained to the patient and the family including, but not limited to: Bleeding, infection, arrhythmia, stroke,
vascular/cardiac/lung puncture, surgery, pacemaker dependency/device malfunction. All questions were answered.
A surgical pause was performed in accordance with hospital regulations. Anesthesia service provided sedation as reported separately. Antibiotics administered IV for risk of bacterial colonization. After obtaining informed and written consent, the
patient was brought to the electrophysiology laboratory.
The initial rhythm was sinus.
The procedure site was meticulously prepared with surgical scrub and allowed to dry with no pooling. Sterile draping was applied to cover the procedure site. The image intensifier was draped with sterile bag and positioned over the patient.
A surgical pause and time out was performed immediately prior to the procedure with review of her medical history, recent labs, allergies and medications with site of procedure identified and consent noted in the chart. Antibiotics pre operatively
given. All team members concurred.
The left infraclavicular region was prepped and draped in the usual sterile fashion. Local anesthesia was administered subcutaneously using 1% lidocaine / Bupivacaine. The left cephalic vein cutdown was performed with an incision at the
delto-pectoral groove, and vascular sheath was introduced for lead access.
A subcutaneous pocket was created with blunt dissection and use of electrocautery. Hemostasis was excellent.
First the atrial lead was placed in the RV apical septal location and was actively engaged for the backup pacing.
The guide wire was then advanced to the RA and was advanced to the RV. The preformed curved long hemostatic peel away HIS sheath was advanced into the RV cavity. A left bundle pacing wire was advanced into the sheath to the tip with ventricular
signals noted with unipolar manner.
The HIS location was identified under guidance of the fluoroscopy and the pacing wire signals. The sheath with the pacing lead was moved deeper into the RV cavity on the septum at a more inferior and distal to the HIS signals.
There was sheath approximation confirmed on MAURITANIAN view. Once adequate signals were noted on the electrograms of the pacing lead in the sheath with W pattern signals on the RV septum, the lead was advanced and clockwise turns were done under
fluoroscopic guidance. The septum was engaged and the lead was paced intermittently after every 2-3 turns. The Impedance of the lead was measured that remained stable around 1000 Ohm. The lead was paced and septal pacing was noted. The sheath was
placed again to the septum and the lead was advanced 2-3 turns with pacing with each advancement. The ventricular capture was monitored throughout and the captures gradually changed from RV pacing to non-selective pacing to LBB pacing with R wave on
V1 morphology.
The long guiding sheath was cut and removed from the RV without change in lead position, impedance, sensing, or capture.
Then the attention was given to atrial lead. Atrial active lead was placed in the RA and into the RAA. There were excellent impedance and thresholds.
The lead was sutured to the underlying pectoralis fascia with 2-0 Ti-Cron stitches.
The leads were attached to the pulse generator in standard configuration with acceptable sensing and threshold parameters. The pocket was irrigated with antibiotic solution; the pocket was inspected with no active bleeding noted. The device and the
leads were placed in the pocket.
The pocket was rinsed with antibiotics soaked solution.
Deep subcutaneous tissues were closed with three layers of 2-0 V loc sutures; and the dermis was reopposed using a running 4-0 Biosyn subcuticular suture.
Sponge counts / sharp counts were appropriate.
Procedure End:
The procedure was tolerated well. Aquacel bandaged was applied.
Estimated Blood loss:
5 cc
Specimens Removed:
No cultures and no specimens were obtained. No intraoperative pathology was identified.
Urine output:
None
Packs / Drains/ Tubes:
None
Instrument / Sponge Count Correct:
Yes
Flouro time:
2.6min / 11.7 Gycm2
Complications of the Procedure:
None
Condition of Patient at Time of Transfer:
Hemodynamically stable with no neurological or vascular compromise.
Device information:�
Generator: [employer]; Model: W1DR01; Serial # [id number]�
RA pacing lead: [employer]; Model: 5076-52; Serial # [id number]
Measured data on the RV lead was sensing of 1.4 mV, impedance of 607 ohms and threshold of 0.75 V at 0.4ms. �
RV LBB pacing lead: [employer]; Model: 3830-69; Serial # [id number]
Measured data on the RV lead was sensing of 4.0mV, impedance of 817 ohms and threshold of 0.5 V at 0.4ms�
PROGRAMMING PARAMETERS:�
Arturo parameter settings were AAIR <=> DDDR 60-130 �
Paced AV interval: 180ms
Sensed AV interval: 150 ms.
Rate Adaptive A-V Interval: on
Mode switch ON
Summary:
Successful implantation of MRI compatible dual chamber conduction system pacing permanent pacemaker.
Results/Recommendations:
- Please follow up CXR�
- Second dose of prophylactic antibiotics before discharge
- Please provide patient with adequate pain control�
Instructions to be given to patient:�
- Please follow up with [facility] at [address] [place] [address] ([phone]) to get your wound checked in 2 weeks of your discharge. Then follow with
- Do not wet incision site until after it is evaluated at cardiology clinic. No baths or showers until then. Sponge baths / showers are OK but dab dry the dressing after it is wet.�
- Allow 'steri strips' to fall off on their own�
- Do not lift left elbow above shoulder, particularly with sudden jerking movements, for 1 month�
- Do not lift anything weighing more than 5 pounds with the left arm for 1 month�
- If you notice any fevers, shortness of breath, lightheadedness, chest pain, or worsening swelling in the wound site, please contact the arrhythmia clinic, contact your bead wire taper, or present to the hospital for evaluation.�
Hayes Hernandez MD
Electrophysiology
[2025-07-06] MEDS: TYLENOL 650 MG PO (13:13)
[2025-07-06] MEDS: ANCEF 5 IV (14:55)
--- NOTE | 2025-07-06 15:46 | W.PN.UPDATE ---
Update Note
Progress Note Update
60 yo WM s/p PPM (same day). He denies cp, sob, sydnee diet, EKG Apaced with PVC's, CXR no PTX, leads in position. Activity restrictions reviewed. He will have incision check in 1 week. He will resume Eliquis on Thursday am. He is for d/c home after 3pm.
== END 2025-07-06 15:33 | disposition home or self-care (01) ==
LOC: CATH 08:16
PROVIDERS: ATTENDING PHYSICIAN Internal Medicine Cardiovascular Disease; FAMILY PHYSICIAN Internal Medicine; OTHER PHYSICIAN Internal Medicine Cardiovascular Disease
DX: I49.5 Sick sinus syndrome (principal); E78.5 Hyperlipidemia, unspecified; E83.110 Hereditary hemochromatosis; G47.33 Obstructive sleep apnea (adult) (pediatric); I25.10 Atherosclerotic heart disease of native coronary artery without angina pectoris; I44.0 Atrioventricular block, first degree; I48.92 Unspecified atrial flutter; I49.3 Ventricular premature depolarization; Z79.899 Other long term (current) drug therapy; Z79.01 Long term (current) use of anticoagulants; G43.809 Other migraine, not intractable, without status migrainosus
CPT/HCPCS: 33208; 71045; 93005; C1769; C1785; C1898